=== PATIENT | male | born 1950 | race Caucasian/White ===

== ENCOUNTER 2017-05-15 16:48 | Emergency (ER) | payer OTHER ==
--- OUTSIDE RECORDS SUMMARY | 2017-05-15 17:00 | XMS REPORT ---
:1950 External Reference #:[id number] [facility] Address [address] [address] Phone [phone] Care Team Providers Name Role Phone Juanjose Bergeron MD Primary Care Physician Unavailable Payers Type Date Identification Numbers Payment Provider Subscriber Commercial Policy Number: [id number] [employer] Number: [id number] [id number] PayID: [id number] [place] [address] Problems Date Description Provider Status Onset: 11/06/2012 Coronary arteriosclerosis Bill Adams M.D.,FACP Onset: 01/16/2015 Ischemic dilated cardiomyopathy Juanjose Bergeron, Active due to coronary artery disease Zion,FACP Onset: 02/28/2007 Benign essential hypertension Bill Adams M.D.,FACP Onset: 02/28/2007 Hyperlipidemia Bill Adams M.D.,FACP Onset: 02/28/2007 Impaired fasting glycaemia Bill Adams M.D.,FACP Onset: 09/04/2009 Allergic rhinitis due to pollen Bill Adams M.D.,FACP Onset: 07/27/2011 Disorder of shoulder Bill Adams M.D.,FACP Onset: 07/27/2011 Gastroesophageal reflux disease Bill Adams M.D.,FACP Onset: 11/08/2012 Arthropathy of joint of hand Juanjose Bergeron, Active M.Karuna,FACP Onset: 01/16/2015 Cholelithiasis without Juanjose Bergeron, Active obstruction Zion,FACP Onset: 10/31/2012 Gallbladder calculus with acute Juanjose Bergeron, Inactive cholecystitis and obstruction Jasmin.Karuna,FACP Inactive: 01/16/2015 Onset: 07/19/2013 Chronic ischemic heart disease Matty Flores M.D., FACC, Inactive FSCAI Inactive: 01/16/2015 Family History Date Family Member(s) Problem(s) Comments General Heart Disease Father due to [place] () - sudden at 80 Father Hypertension Mother due to Motor () Vehicle Accident Siblings 3 : (age 64 First Brother due to [place] Years) Second Brother Heart Disease Paternal Uncles Cancer, Lung Social History Type Date Description Comments Marital Status Lives With Family 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 [employer] Note - [employer] Cigarette Use Quit 29 Years Ago ETOH Use 02/16/2016 Denies alcohol use Recreational Drug Use Denies Drug Use Smoking Patient is a former smoker 1ppd X 12 years Daily Caffeine Does Not Consume Caffeine Exercise Type/Frequency Does not exercise General Hx Text 2 children, one disabled Allergies, Adverse Reactions, Alerts Date Description Reaction Status Severity Comments 02/28/2007 Niacin active 11/08/2012 Sulfa Antibiotics active 12/20/2013 Codeine active Medications Medication Date Status Form Strength Qnty SIG Indications Ordering Provider Atorvastatin 02/17 Active Tablets 40mg 90tab 1 by Juanjose s mouth Karuna Bergeron, every M.D.,FACP evening Hydrochlorothiazid 01/22 Active Capsules 12.5mg 90cap take 1 I25.111 Juanjose s capsule Karuna Bergeron, by mouth M.D.,FACP every day Enalapril Maleate 01/16 Active Tablets 20mg 180ta take 1 bs tablet by Karuna Bergeron, mouth M.D.,FACP twice a day Cyclobenzaprine 09/06 Active Tablets 10mg 60tab take 1 Andry s tablet Pachikara twice a , M.D. day as needed Nitrostat 04/12 Active Tablets Sub 0.4mg 25tab one sl I25.111 s q5min up Karuna Bergeron, to 3 M.D.,FACP doses as needed Isosorbide 02/01 Active Tablets ER 30mg 90tab take 1 Juanjose Mononitrate 24HR s tablet Karuna Bergeron, daily M.D.,FACP Aspirin 12/[address] 81mg 50tab 1 po qd s Karuna Bergeron M.D.,FACP Multi-Vitamins/Iro 02/28 Active Tablets Juanjose Karuna Bergeron M.D.,FACP Vitamin C Active Capsules 500mg 1 po qd Unknown Tylenol Active Tablets 325mg 1 tablet Unknown bid prn Calcium/Vitamin D Active Tablet 1 tablet Unknown / daily Fiber Select Active Chewtabs 120un 2 Unknown Gummies its chewtabs by mouth every day Vitamin B12 Active Tablets 1 by Unknown / mouth every day Metoprolol Active Tablets 25mg 180ta take 1 Tartrate bs tablet by Karuna Bergeron, mouth M.D.,FACP twice a day Omeprazole Active Capsules DR 40mg 90cap take 1 s capsule Karuna Bergeron, daily M.D.,FACP Chlorpheniramine Active Tablets 4mg twice a Unknown Male day as needed Atorvastatin 02/15 Hx Tablets 80mg 90tab take 1 Juanjose s tablet by Karuna Bergeron, - mouth M.D.,FACP 02/17 every day Clopidogrel 02/07 Hx Tablets 75mg 90tab 1 PO qd Jasmeet Bisulf s Bessy, [employer] - 01/12 Hydrochlorothiazid 08/09 Hx Capsules 12.5mg 30cap 1 cap by 401.9 Clair e s mouth Gael, - every day N.P. 11/14 Atorvastatin 07/19 Hx Tablets 40mg 180ta 2 by Juanjose bs mouth Karuna Bergeron, - every day M.D.,FACP 02/15 Atorvastatin 04/12 Hx Tablets 40mg 90tab take 1 Juanjose Calcium s tablet by Karuna Bergeron, - mouth at M.D.,FACP 07/19 bedtime Atorvastatin 04/05 Hx Tablets 20mg 90tab take 1 Juanjose Calcium s tablet Karuna Bergeron, - daily M.D.,FACP 04/12 Atorvastatin 02/01 Hx Tablets 40mg 30tab take 1 Juanjose Calcium s tablet at Karuna Bergeron, - bedtime M.D.,FACP 04/05 Penicillin V 01/13 Hx Tablets 500mg 40tab qid for Juanjose Potassium s 10 days Karuna Bergeron, - M.D.,FACP 02/01 Tamiflu 01/11 Hx Capsules 75mg 10cap 1 cap po 487.8 Clair s bid x 5 Gael, - days N.P. 01/13 Voltaren 11/08 Hx Gel 1% 100g apply 1 716.84 gm to Karuna Bergeron, - affected M.D.,FACP 02/01 area bid prn Enalapril Maleate 11/07 Hx Tablets 10mg 60tab 1 tab by s mouth Stefek, - twice a M.D., 11/07 day [facility] Enalapril Maleate 11/07 Hx Tablets 10mg 60tab take 1 s tablet Karuna Bergeron, - twice a M.D.,FAC Vicodin 12/06 Hx Tablets 5-500mg 30tab 1-2 s tablets Suri, - bid as M.D. 11/08 pain Flexeril 11/29 Hx Tablets 10mg 60tab 1 po bid s prn Suri, - M.D. 09/06 Vicodin 11/08 Hx Tablets 5-500mg 14tab 1 tablets Earlene s bid as Nicolasa, - needed RPA 12/06 Naprosyn 11/08 Hx Tablets 500mg 60tab D/C'd s 01/09. Suri, - twice M.D. 02/27 daily with food prn Omeprazole 07/[address] 40mg 90cap Take 1 530.81 s Capsule Karuna Bergeron, - Daily M.D.,[facility] 04/08 Flexeril 12/08 Hx Tablets 10mg 60tab 1 po tid s prn Suri, - M.D. 07/26 Azithromycin 09/28 Hx Tablets 250mg 6tabs 2 tabs po 461.0 qd x1 Karuna Bergeron, - day, 1 M.D.,[facility] 07/26 tab po qd x 4 days Tessalon Perles 09/28 Hx Capsules 100mg 100mg 100 mg po 461.0 tid prn Karuna Bergeron, - M.D.,[facility] 07/26 Proair HFA 09/28 Hx Aerosol 108(90Bas 1inha 2 puffs 466.0 e) mcg/ac ler inhaled Karuna Bergeron, - q4-6h prn M.D.,[facility] 07/26 Naproxen 12/08 Hx Tabs 500mg 60tab take 1 726.19 s tablet Suri, - twice A M.D. 11/08 day needed Nasonex 09/04 Hx Suspension 50mcg/Act 1unit 1-2 477.0 s sprays Karuna Bergeron, - each M.D.,[facility] 07/26 nostril daily Karen 08/06 Hx Tablets 180mg 30tab 1 po qd 477.0 s c, - Radomir, 07/26 M.D. Atrovent 08/06 Hx Solution 0.03% 1unit 2 squirts 477.0 s each c, - nostril Radomir, 07/26 bid M.D. Protonix 08/[address] 40mg 30tab 1 tab po 477.0 s q hs c, - Radomir, 08/06 M.D. Omeprazole 08/[address] 40mg 30cap 1 po qd s c, - Radomir, 07/26 M.D. /2012 Avelox 04/01 Hx Tablets 400mg 10tab 1 qd x 10 466.0 s days Pascale Rowley M.D.,[facility] 07/03 Hycodan 04/01 Hx Syrup 5-1.5/5 200cc 5cc qid 466.0 prn cough Pascale Rowley M.D.,[facility] 07/03 Avelox 05/25 Hx Tablets 400mg 10tab 1 qd x 10 466.0 s days Pascale Rowley M.D.,[facility] 09/02 Hycodan 05/25 Hx Syrup 5-1.5/5 100cc 5cc qid prn cough Pascale Rowley M.D.,[facility] 09/02 Augmentin 05/10 Hx Tablets 875mg 20tab si 461.9 s bid x 10 Pascale Rowley M.D.,[facility] 09/02 0 05/10 Hx off work 466.0 05/10 and Karuna Bergeron - 05/11 Zion,[facility] 09/02 Aspir-[address] 02/[address] 81mg 30tab 1 PO qd Pascale Saleem M.D.,[facility] 12/08 Ibuprofen 02/28 Hx Tablets 200mg tid Pascale Rowley M.D.,[facility] 07/26 Enalapril 02/28 Hx Tablets 10-25mg 30tab 1 qam 401.1 Juanjose Maleate/Hydrochlor /2006 andrzej Bergeron othiazide Pascale Donovan,[facility] 10/01 Enalapril Maleate 02/28 Hx Tablets 10mg 90tab Take 1 s Tablet In Bassem Rowley,[facility] 11/07 Enalapril Maleate 02/15 Hx Tablets 10mg 60tab po bid Juanjose Pascale Saleem M.D.,[facility] 02/28 Vitamin B-12 00/00 Hx Tablets Sub 500mcg 50tab 1 po Unknown /0000 s daily - 01/19 Clortab Hx 4mg one pill Unknown /0000 2 times a - day 11/08 Zantac Hx Tablets 150mg 30tab 1 po bid Unknown /0000 s prn - 01/11 Gummi Fiber Hx Chewtabs 4mg 2 daily Unknown /0000 - 04/08 Atorvastatin Hx Tablets 20mg 30tab take 1 Unknown Calcium /0000 s tablet at - bedtime 02/01 Isosorbide Hx Tablets 30mg 30tab 1 po qd Unknown Mononitrate /0000 s - 02/01 Clopidogrel Hx Tablets 75mg 30tab 1 po qd Juanjose / s Pascale Rowley M.D.,[facility] 02/07 Vitamin C CR Hx Capsules ER 500mg 1 po qd Unknown /0000 - 01/11 Diclofenac Sodium Hx Tablets DR 75mg 60tab take 1 Unknown /0000 s tablet by - mouth 01/18 twice a day Medications Administered in Office Medication Date Status Form Strength Qnty SIG Indications Ordering Provider Celestone 3 mg Administered Injection Johnnie and 3mg 013 Zion Mccord Depomedrol Administered Injection Johnnie 80MG 011 Zion Mccord Depomedrol Administered Injection Johnnie 40MG 010 Zion Mccord Immunizations CPT Code Status Date Vaccine Lot # [id number] Given 02/17/2017 Pneumococcal Conjugate Vaccine 13 Valent For [id number] Intramuscular Use 55732 Given 02/02/2017 Influenza Virus Vaccine, Quadrivalent, Split, Preservative Free [id number] Given 01/23/2014 Flu Vaccine Split Virus Preservative Free For Indiv 3Yr Older 71394 Given 02/01/2013 Zoster (Zostavax) [id number] 02736 Given 02/01/2013 Pneumonia Vaccine [id number] 18312 Given 02/25/2011 Influenza Virus 3Yrs & Over 95899 Given 07/03/2008 Tdap - Tetanus/Diptheria/Acellular Pertussis [id number] 72185 Given 01/16/2008 Flu Vac (History By Patient> Vital Signs Date Vital Result Comment 05/04/2017 Weight 189.00 lb BP Systolic Sitting 132 mmHg BP Diastolic Sitting 82 mmHg Body Temperature 97.3 F 02/17/2017 Height 64 inches 5'4" Weight 188.00 lb Heart Rate 88 /min BP Systolic Sitting 124 mmHg BP Diastolic Sitting 82 mmHg Body Temperature 98.3 F O2 % BldC Oximetry 96 % BMI (Body Mass Index) 32.3 kg/m2 02/16/2016 Weight 192.00 lb Heart Rate 96 /min BP Systolic Sitting 130 mmHg BP Diastolic Sitting 82 mmHg Respiratory Rate 15 /min Body Temperature 97.8 F O2 % BldC Oximetry 98 % 02/15/2016 Height 64 inches 5'4" Weight 193.00 lb Heart Rate 88 /min 94 BP Systolic Sitting 126 mmHg left arm, reg cuff BP Diastolic Sitting 88 mmHg left arm, reg cuff BP Systolic Standing 112 mmHg left arm, reg cuff BP Diastolic Standing 86 mmHg left arm, reg cuff Respiratory Rate 12 /min BMI (Body Mass Index) 33.1 kg/m2 Ejection Fraction 50-55% 12/18/12 02/13/2015 Height 64 inches 5'4" Weight 192.50 lb Heart Rate 68 /min BP Systolic Sitting 109 mmHg BP Diastolic Sitting 74 mmHg Body Temperature 98.0 F O2 % BldC Oximetry 93 % BMI (Body Mass Index) 33.0 kg/m2 01/22/2015 Height 64 inches 5'4" Weight 199.00 lb Heart Rate 78 /min BP Systolic Sitting 172 mmHg BP Diastolic Sitting 104 mmHg Body Temperature 97.9 F O2 % BldC Oximetry 94 % BMI (Body Mass Index) 34.2 kg/m2 01/19/2015 Height 64 inches 5'4" Weight 193.00 lb Heart Rate 72 /min 76 BP Systolic Sitting 130 mmHg right arm, reg cuff BP Diastolic Sitting 87 mmHg right arm, reg cuff BP Systolic Standing 124 mmHg right arm, reg cuff BP Diastolic Standing 86 mmHg right arm, reg cuff Respiratory Rate 14 /min BMI (Body Mass Index) 33.1 kg/m2 Ejection Fraction 50-55% 12/18/12 02/07/2014 Height 64 inches 5'4" Weight 192.50 lb Heart Rate 71 /min BP Systolic Sitting 133 mmHg BP Diastolic Sitting 72 mmHg Body Temperature 98.5 F BMI (Body Mass Index) 33.0 kg/m2 12/20/2013 Height 65 inches 5'5" Weight 182.00 lb Heart Rate 62 /min BP Systolic 136 mmHg BP Diastolic 90 mmHg BMI (Body Mass Index) 30.3 kg/m2 11/14/2013 Weight 192.00 lb Heart Rate 80 /min BP Systolic Sitting 104 mmHg BP Diastolic Sitting 76 mmHg Body Temperature 97.0 F 08/09/2013 Height 64 inches 5'4" Weight 196.25 lb Heart Rate 88 /min BP Systolic Sitting 120 mmHg BP Diastolic Sitting 86 mmHg Body Temperature 98.3 F BMI (Body Mass Index) 33.7 kg/m2 07/19/2013 Height 63.5 inches 5'3.50" Weight 194.00 lb Heart Rate 70 /min 74 BP Systolic Sitting 134 mmHg left arm, reg cuff BP Diastolic Sitting 100 mmHg left arm, reg cuff BP Systolic Standing 130 mmHg left arm, reg cuff BP Diastolic Standing 100 mmHg left arm, reg cuff Respiratory Rate 16 /min BMI (Body Mass Index) 33.8 kg/m2 04/24/2013 Heart Rate 84 /min BP Systolic Sitting 130 mmHg BP Diastolic Sitting 88 mmHg 04/12/2013 Height 64.5 inches 5'4.50" Weight 189.75 lb Heart Rate 76 /min BP Systolic Sitting 118 mmHg BP Diastolic Sitting 76 mmHg BMI (Body Mass Index) 32.1 kg/m2 02/01/2013 Height 64 inches 5'4" Weight 190.50 lb Heart Rate 72 /min BP Systolic Sitting 132 mmHg BP Diastolic Sitting 94 mmHg BMI (Body Mass Index) 32.7 kg/m2 01/11/2013 Weight 190.25 lb Heart Rate 88 /min BP Systolic Sitting 136 mmHg BP Diastolic Sitting 72 mmHg Body Temperature 98.5 F O2 % BldC Oximetry 97 % 11/08/2012 Weight 189.25 lb Heart Rate 88 /min BP Systolic Sitting 160 mmHg BP Diastolic Sitting 82 mmHg 07/27/2011 Height 64 inches 5'4" Weight 190.00 lb Heart Rate 68 /min BP Systolic Sitting 122 mmHg BP Diastolic Sitting 80 mmHg Respiratory Rate 14 /min Body Temperature 97.9 F BMI (Body Mass Index) 32.6 kg/m2 09/28/2010 Height 64.25 inches 5'4.25" Weight 192.00 lb Heart Rate 70 /min BP Systolic Sitting 146 mmHg BP Diastolic Sitting 96 mmHg BMI (Body Mass Index) 32.7 kg/m2 12/08/2009 Weight 185.00 lb Heart Rate 70 /min BP Systolic Sitting 138 mmHg BP Diastolic Sitting 84 mmHg 09/04/2009 Weight 189.00 lb Heart Rate 84 /min BP Systolic Sitting 138 mmHg BP Diastolic Sitting 90 mmHg 08/06/2009 Weight 189.00 lb Heart Rate 78 /min BP Systolic Sitting 120 mmHg BP Diastolic Sitting 78 mmHg Body Temperature 97.5 F 07/03/2008 Height 64.5 inches 5'4.50" Weight 177.00 lb Heart Rate 72 /min BP Systolic Sitting 118 mmHg BP Diastolic Sitting 70 mmHg BMI (Body Mass Index) 29.9 kg/m2 04/01/2008 Height 64.5 inches 5'4.50" Weight 183.00 lb Heart Rate 72 /min BP Systolic Sitting 126 mmHg BP Diastolic Sitting 80 mmHg Body Temperature 97.9 F BMI (Body Mass Index) 30.9 kg/m2 03/05/2008 Height 64.5 inches 5'4.50" Weight 183.00 lb Heart Rate 64 /min BP Systolic Sitting 116 mmHg BP Diastolic Sitting 62 mmHg BMI (Body Mass Index) 30.9 kg/m2 09/03/2007 Height 64.5 inches 5'4.50" Weight 185.00 lb Heart Rate 64 /min BP Systolic Sitting 130 mmHg BP Diastolic Sitting 88 mmHg BMI (Body Mass Index) 31.3 kg/m2 05/25/2007 Height 64.5 inches 5'4.50" Weight 181.00 lb Heart Rate 76 /min BP Systolic Sitting 126 mmHg BP Diastolic Sitting 78 mmHg BMI (Body Mass Index) 30.6 kg/m2 05/10/2007 Height 64.5 inches 5'4.50" Weight 179.00 lb Heart Rate 80 /min BP Systolic Sitting 134 mmHg BP Diastolic Sitting 90 mmHg Respiratory Rate 20 /min Body Temperature 98.8 F BMI (Body Mass Index) 30.2 kg/m2 02/28/2007 Height 64.5 inches 5'4.50" Weight 181.00 lb Heart Rate 88 /min BP Systolic Sitting 160 mmHg BP Diastolic Sitting 94 mmHg BMI (Body Mass Index) 30.6 kg/m2 Results Test Date Test Result H/L Range Note Laboratory test 05/04/2017 Culture Throat <pending> finding Laboratory test 05/04/2017 Rapid Group A neg finding Strep Basic Metabolic Panel 01/31/2017 Sodium 139 mmol/L 133-145 Potassium 4.1 mmol/L 3.5-5.0 Chloride 104 mmol/L 101-111 Co2 Carbon Dioxide 30 mmol/L 22-32 Anion Gap 5 mmol/L 2-11 Glucose 114 mg/dL High 70-100 Blood Urea Nitrogen 21 mg/dL 6-24 Creatinine 1.29 mg/dL High 0.67-1.17 BUN/Creatinine Ratio 16.3 8-20 Calcium 9.2 mg/dL 8.6-10.3 Egfr Non- 55.9 >60 Egfr 71.9 >60 1 Lipid Profile (Trig/Chol/HDL) 01/31/2017 Triglycerides 169 mg/dL 2 Cholesterol 108 mg/dL 3 HDL Cholesterol 28.3 mg/dL 4 LDL Cholesterol 46 mg/dL 5 Laboratory test finding 08/29/2016 Creatine Kinase(CK) 68 U/L 10-223 6 Liver Function Panel 08/29/2016 Total Protein 6.7 g/dL 6.4-8.9 Albumin 3.9 g/dL 3.2-5.2 Globulin 2.8 g/dL 2-4 Albumin/Globulin Ratio 1.4 1-3 Total Bilirubin 0.60 mg/dL 0.2-1.0 Direct Bilirubin 0.10 mg/dL 0.03-0.18 Indirect Bilirubin 0.5 mg/dL 0.3-1.0 Alkaline Phosphatase 66 U/L 34-104 Alt 29 U/L 7-52 Ast 18 U/L 13-39 Lipid Profile (Trig/Chol/HDL) 08/29/2016 Triglycerides 141 mg/dL 7 Cholesterol 158 mg/dL 8 HDL Cholesterol 38.0 mg/dL 9 LDL Cholesterol 92 mg/dL 10 Lipid Profile (Trig/Chol/HDL) 02/05/2016 Triglycerides 149 mg/dL 11 Cholesterol 111 mg/dL 12 HDL Cholesterol 26.9 mg/dL 13 LDL Cholesterol 54 mg/dL 14 Laboratory test finding 02/05/2016 Glucose 117 mg/dL High 70-100 Comp Metabolic Panel 02/05/2016 Sodium 140 mmol/L 133-145 Potassium 4.0 mmol/L 3.5-5.0 Chloride 104 mmol/L 101-111 Co2 Carbon Dioxide 29 mmol/L 22-32 Anion Gap 7 mmol/L 2-11 Blood Urea Nitrogen 21 mg/dL 6-24 Creatinine 1.44 mg/dL High 0.67-1.17 BUN/Creatinine Ratio 14.6 8-20 Calcium 9.3 mg/dL 8.6-10.3 Total Protein 6.6 g/dL 6.4-8.9 Albumin 4.1 g/dL 3.2-5.2 Globulin 2.5 g/dL 2-4 Albumin/Globulin Ratio 1.6 1-3 Total Bilirubin 0.60 mg/dL 0.2-1.0 Alkaline Phosphatase 85 U/L 34-104 Alt 33 U/L 7-52 Ast 21 U/L 13-39 Egfr Non- 49.4 >60 Egfr 63.5 >60 15 Basic Metabolic Panel 02/06/2015 Sodium 138 mmol/L 133-145 Potassium 4.0 mmol/L 3.5-5.0 Chloride 100 mmol/L Low 101-111 Co2 Carbon Dioxide 31 mmol/L 22-32 Anion Gap 7 mmol/L 2-11 Glucose 121 mg/dL High 70-100 Blood Urea Nitrogen 17 mg/dL 6-24 Creatinine 1.33 mg/dL High 0.67-1.17 BUN/Creatinine Ratio 12.8 8-20 Calcium 9.3 mg/dL 8.6-10.3 Egfr Non- 54.3 >60 Egfr 69.8 >60 16 Laboratory test finding 01/15/2015 Lactic Acid 0.8 mmol/L 0.5-2.2 Troponin-I (TnI) 0.00 ng/mL <0.03 17 Comp Metabolic Panel 01/15/2015 Sodium 137 mmol/L 133-145 Potassium 3.9 mmol/L 3.5-5.0 Chloride 103 mmol/L 101-111 Co2 Carbon Dioxide 28 mmol/L 22-32 Anion Gap 6 mmol/L 2-11 Glucose 106 mg/dL High 70-100 Blood Urea Nitrogen 19 mg/dL 6-24 Creatinine 1.31 mg/dL High 0.67-1.17 BUN/Creatinine Ratio 14.5 8-20 Calcium 9.4 mg/dL 8.6-10.3 Total Protein 6.8 g/dL 6.4-8.9 Albumin 4.3 g/dL 3.2-5.2 Globulin 2.5 g/dL 2-4 Albumin/Globulin Ratio 1.7 1-3 Total Bilirubin 0.60 mg/dL 0.2-1.0 Alkaline Phosphatase 81 U/L 34-104 Alt 31 U/L 7-52 Ast 20 U/L 13-39 Egfr Non- 55.3 >60 Egfr 71.1 >60 18 CBC Auto Diff 01/15/2015 White Blood Count 7.5 10^3/uL 4.8-10.8 Red Blood Count 5.57 10^6/uL High 4.0-5.4 Hemoglobin 15.8 g/dL 14.0-18.0 Hematocrit 48 % 42-52 Mean Corpuscular Volume 86 fL 80-94 Mean Corpuscular Hemoglobin 28 pg 27-31 Mean Corpuscular HGB Conc 33 g/dL 31-36 Red Cell Distribution Width 15 % 10.5-15 Platelet Count 208 10^3/uL 150-450 Mean Platelet Volume 9 um3 7.4-10.4 Abs Neutrophils 5.0 10^3/uL 1.5-7.7 Abs Lymphocytes 1.1 10^3/uL 1.0-4.8 Abs Monocytes 0.8 10^3/uL 0-0.8 Abs Eosinophils 0.6 10^3/uL 0-0.6 Abs Basophils 0 10^3/uL 0-0.2 Abs Nucleated RBC 0 10^3/uL Granulocyte % 66.7 % 38-83 Lymphocyte % 14.7 % Low 25-47 Monocyte % 10.5 % High 1-9 Eosinophil % 7.6 % High 0-6 Basophil % 0.5 % 0-2 Nucleated Red Blood Cells % 0.1 Lipid Profile (Trig/Chol/HDL) 09/13/2013 Triglycerides 187 mg/dL 19, 20 Cholesterol 124 mg/dL 19, 21 HDL Cholesterol 29.4 mg/dL 19, 22 LDL Cholesterol 57 mg/dL 19, 23 Laboratory test finding 09/13/2013 Alt 38 U/L 7-52 19, 24 Ast 24 U/L 13-39 19, 25 Laboratory test finding 04/02/2013 Inr 0.91 0.85-1.06 26 Comp Metabolic Panel 04/02/2013 Sodium 134 mmol/L 133-145 Potassium 4.2 mmol/L 3.5-5.0 Chloride 102 mmol/L 101-111 Co2 Carbon Dioxide 27.0 mmol/L 22-32 Anion Gap 5.0 mmol/L 2-11 Glucose 117 mg/dL High 70-100 Blood Urea Nitrogen 15 mg/dL 6-24 Creatinine 1.10 mg/dL 0.50-1.40 BUN/Creatinine Ratio 13.6 8-20 Calcium 9.2 mg/dL 8.1-9.9 Total Protein 7.0 g/dL 6.2-8.1 Albumin 4.1 g/dL 3.2-5.2 Globulin 2.9 g/dL 2-4 Albumin/Globulin Ratio 1.4 1-3 Total Bilirubin 0.8 mg/dL 0.4-1.5 Alkaline Phosphatase 64 U/L 30-110 Alt 29 U/L 14-54 Ast 26 U/L 12-42 Egfr Non- 68.1 >60 Egfr 87.5 >60 27 Laboratory test finding 04/02/2013 Creatine Kinase 187 U/L 0-200 CKMB 04/02/2013 CKMB ng/mL 3.6 ng/mL 0.3-4.0 28 Laboratory test finding 04/02/2013 Troponin I 0.04 ng/mL 0-0.06 29 CBC Auto Diff 04/02/2013 White Blood Count 8.5 10^3/uL 4.8-10.8 Red Blood Count 5.39 10^6/uL 4.0-5.4 Hemoglobin 15.4 g/dL 14.0-18.0 Hematocrit 46 % 42-52 Mean Corpuscular Volume 84 fL 80-94 Mean Corpuscular Hemoglobin 29 pg 27-31 Mean Corpuscular HGB Conc 34 g/dL 31-36 Red Cell Distribution Width 18 % High 10.5-15 Platelet Count 256 10^3/uL 150-450 Mean Platelet Volume 9 um3 7.4-10.4 Abs Neutrophils 6.5 10^3/uL 1.5-7.7 Abs Lymphocytes 0.9 10^3/uL Low 1.0-4.8 Abs Monocytes 0.8 10^3/uL 0-0.8 Abs Eosinophils 0.1 10^3/uL 0-0.6 Abs Basophils 0 10^3/uL 0-0.2 Abs Nucleated RBC 0.01 10^3/uL Granulocyte % 77.1 % 38-83 Lymphocyte % 11.1 % Low 25-47 Monocyte % 9.7 % High 1-9 Eosinophil % 1.7 % 0-6 Basophil % 0.4 % 0-2 Nucleated Red Blood Cells % 0.1 Cell Morphology 04/02/2013 RBC Morphology Normal Normal Lipid Profile (Trig/Chol/HDL) 01/28/2013 Triglycerides 93 mg/dL 40-200 Cholesterol 144 mg/dL Less than 200 HDL Cholesterol 30 mg/dL Low 40-60 30 Cholesterol/HDL Ratio 4.8 Average High 1-4.44 LDL Cholesterol 95.4 Less Than 100 31 Laboratory test finding 01/28/2013 Alt 43 U/L 14-54 Ast 36 U/L 12-42 Laboratory test finding 01/11/2013 Throat Beta Strep (SEE NOTE) 32 Culture Laboratory test finding 01/11/2013 Rapid Strep A Negative Laboratory test finding 10/31/2012 Troponin I 0.09 ng/mL High 0-0.06 33 CBC Auto Diff 10/31/2012 White Blood Count 8.5 10^3/uL 4.8-10.8 Red Blood Count 5.23 10^6/uL 4.0-5.4 Hemoglobin 14.5 g/dL 14.0-18.0 Hematocrit 43 % 42-52 Mean Corpuscular Volume 83 fL 80-94 Mean Corpuscular Hemoglobin 28 pg 27-31 Mean Corpuscular HGB Conc 34 g/dL 31-36 Red Cell Distribution Width 14 % 10.5-15 Platelet Count 191 10^3/uL 150-450 Mean Platelet Volume 10 um3 7.4-10.4 Abs Neutrophils 6.8 10^3/uL 1.5-7.7 Abs Lymphocytes 0.7 10^3/uL Low 1.0-4.8 Abs Monocytes 0.7 10^3/uL 0-0.8 Abs Eosinophils 0.3 10^3/uL 0-0.6 Abs Basophils 0 10^3/uL 0-0.2 Abs Nucleated RBC 0 10^3/uL Granulocyte % 80.4 % 38-83 Lymphocyte % 8.4 % Low 25-47 Monocyte % 7.8 % 1-9 Eosinophil % 3.0 % 0-6 Basophil % 0.4 % 0-2 Nucleated Red Blood Cells % 0 Inr/Protime 10/31/2012 Inr 0.82 Low 0.87-0.97 Laboratory test 10/31/2012 Activated Partial 32.0 seconds 22.18-37.18 34 finding Thrombo Time B Type Natriuretic Peptide 16.0 pg/mL 0-100 Comp Metabolic Panel 10/31/2012 Sodium 138 mmol/L 133-145 Potassium 3.8 mmol/L 3.5-5.0 Chloride 108 mmol/L 101-111 Co2 Carbon Dioxide 28.0 mmol/L 22-32 Anion Gap 2.0 mmol/L 2-11 Glucose 160 mg/dL High 70-100 Blood Urea Nitrogen 17 mg/dL 6-24 Creatinine 1.10 mg/dL 0.50-1.40 BUN/Creatinine Ratio 15.5 8-20 Calcium 8.7 mg/dL 8.1-9.9 Total Protein 6.3 g/dL 6.2-8.1 Albumin 3.6 g/dL 3.2-5.2 Globulin 2.7 g/dL 2-4 Albumin/Globulin Ratio 1.3 1-3 Total Bilirubin 0.6 mg/dL 0.4-1.5 Alkaline Phosphatase 93 U/L 30-110 Alt 33 U/L 14-54 Ast 29 U/L 12-42 Egfr Non- 68.3 >60 Egfr 87.8 >60 35 Laboratory test finding 10/31/2012 Lipase 26 U/L 22-51 36 Creatine Kinase 126 U/L 0-200 37 Laboratory test finding 10/31/2012 Troponin I 0.07 ng/mL High 0-0.06 38 CKMB 10/31/2012 CKMB ng/mL 3.6 ng/mL 0.3-4.0 39 Lipid Profile (Trig/Chol/HDL) 08/24/2011 Triglyceride 129 mg/dL 40-200 Cholesterol 181 mg/dL Less Than 200 40 High Density Lipoprotein 27 mg/dL Low 40-60 41 Cholesterol/HDL Ratio 6.70 AVERAGE High 1-4.97 Low Density Lipoprotein 128 mg/dL High Less Than 100 42 Basic Metabolic Panel 08/24/2011 Sodium 138 mmol/L 135-145 Potassium 4.4 mmol/L 3.5-5.0 Chloride 107 mmol/L 101-111 Co2 (Carbon Dioxide) 27.0 mmol/L 22-32 Anion Gap 4.0 mmol/L 2-11 43 Glucose 111 mg/dL High 70-100 BUN 16 mg/dL 6-24 Creatinine 1.2 mg/dL 0.50-1.40 One Over Creatinine 0.83 BUN/Creatinine Ratio 13.3 8-20 Calcium 9.6 mg/dL 8.1-9.9 eGFR Non- 62.0 > 60 eGFR 79.7 > 60 44 Lipid Profile (Trig/Chol/HDL) 12/08/2009 Triglyceride 178 mg/dL 40-200 Cholesterol 201 mg/dL High Less Than 200 45 High Density Lipoprotein 28 mg/dL Low 40-60 46 Cholesterol/HDL Ratio 7.18 AVERAGE High 1-4.97 Low Density Lipoprotein 137 mg/dL High Less Than 100 47 Basic Metabolic Panel 12/08/2009 Sodium 140 mmol/L 135-145 Potassium 4.3 mmol/L 3.5-5.0 Chloride 103 mmol/L 101-111 Co2 (Carbon Dioxide) 30.0 mmol/L 22-32 Anion Gap 7.0 mmol/L 2-11 48 Glucose 86 mg/dL 70-100 49 BUN 18 mg/dL 6-24 Creatinine 1.20 mg/dL 0.50-1.40 One Over Creatinine 0.80 BUN/Creatinine Ratio 15.0 8-20 Calcium 9.6 mg/dL 8.1-9.9 50 eGFR Non- 66.3 > 60 eGFR 80.3 > 60 51 Lipid Profile (Trig/Chol/HDL) 07/04/2008 Triglyceride 122 mg/dL 40-200 Cholesterol 211 mg/dL High Less Than 200 52 High Density Lipoprotein 30 mg/dL Low 40-60 53 Cholesterol/HDL Ratio 7.03 AVERAGE High 1-4.97 Low Density Lipoprotein 157 mg/dL High Less Than 100 54 Laboratory test finding 07/04/2008 PSA Screening 2.13 NG/ML 0-4 55 C Reactive Protein High Sensit 0.6 mg/L < 7.48 56 Basic Metabolic Panel 07/04/2008 Sodium 139 mmol/L 135-145 Potassium 4.1 mmol/L 3.5-5.0 Chloride 100 mmol/L Low 101-111 Co2 (Carbon Dioxide) 29.0 mmol/L 22-32 Anion Gap 10.0 mmol/L 2-11 57 Glucose 109 mg/dL High 70-100 58 BUN 18 mg/dL 6-24 Creatinine 1.20 mg/dL 0.50-1.40 One Over Creatinine 0.80 BUN/Creatinine Ratio 15.0 8-20 Calcium 9.5 mg/dL 8.1-9.9 59 Throat-Beta Strept 07/07/2007 Throat-Beta Strep Culture NGNBS 60 1 Because ethnic data is not always readily available, this report includes an eGFR for both -Americans and non- Americans. The National Kidney Disease Education Program (NKDEP) does not endorse the use of the MDRD equation for patients that are not between the ages of 18 and 70, are , have extremes of body size, muscle mass, or nutritional status, or are non- or non-. According to the National Kidney Foundation, irrespective of diagnosis, the stage of the disease is based on the level of kidney function: Stage Description GFR(mL/min/1.73 m(2)) 1 Kidney damage with normal or decreased GFR 90 2 Kidney damage with mild decrease in GFR 60-89 3 Moderate decrease in GFR 30-59 4 Severe decrease in GFR 15-29 5 Kidney failure <15 (or dialysis) 2 Desirable: <150 Borderline High: 150-199 High: 200-499 Very High: >500 3 Desirable: <200 Borderline High: 200-239 High: >239 4 Low: <40 Desirable: 40-60 High: >60 5 Desirable: <100 Near Optimal: 100-129 Borderline High: 130-159 High: 160-189 Very High: >189 6 FASTING 12 HOUR 7 Desirable <150 Borderline high 150-199 High 200-499 Very High >500 8 Desirable <200 Borderline high 200-239 High >239 9 Low <40 Desirable: 40-60 High: >60 10 Desirable: <100 mg/dL Near Optimal: 100-129 mg/dL Borderline High: 130-159 mg/dL High: 160-189 mg/dL Very High: >189 mg/dL 11 Desirable <150 Borderline high 150-199 High 200-499 Very High >500 12 Desirable <200 Borderline high 200-239 High >239 13 Low <40 Desirable: 40-60 High: >60 14 Desirable: <100 mg/dL Near Optimal: 100-129 mg/dL Borderline High: 130-159 mg/dL High: 160-189 mg/dL Very High: >189 mg/dL 15 Because ethnic data is not always readily available, this report includes an eGFR for both -Americans and non- Americans. The National Kidney Disease Education Program (NKDEP) does not endorse the use of the MDRD equation for patients that are not between the ages of 18 and 70, are , have extremes of body size, muscle mass, or nutritional status, or are non- or non-. According to the National Kidney Foundation, irrespective of diagnosis, the stage of the disease is based on the level of kidney function: Stage Description GFR(mL/min/1.73 m(2)) 1 Kidney damage with normal or decreased GFR 90 2 Kidney damage with mild decrease in GFR 60-89 3 Moderate decrease in GFR 30-59 4 Severe decrease in GFR 15-29 5 Kidney failure <15 (or dialysis) 16 Because ethnic data is not always readily available, this report includes an eGFR for both -Americans and non- Americans. The National Kidney Disease Education Program (NKDEP) does not endorse the use of the MDRD equation for patients that are not between the ages of 18 and 70, are , have extremes of body size, muscle mass, or nutritional status, or are non- or non-. According to the National Kidney Foundation, irrespective of diagnosis, the stage of the disease is based on the level of kidney function: Stage Description GFR(mL/min/1.73 m(2)) 1 Kidney damage with normal or decreased GFR 90 2 Kidney damage with mild decrease in GFR 60-89 3 Moderate decrease in GFR 30-59 4 Severe decrease in GFR 15-29 5 Kidney failure <15 (or dialysis) 17 Reference Range and Interpretation: TnI (ng/mL) Interpretation Less Than 0.03 ng/mL Not supportive of diagnosis of RI 0.03 - 0.50 ng/mL Indeterminate: suggest serial studies if clinically indicated. Greater than 0.5 ng/mL Consistent with diagnosis of RI 18 Because ethnic data is not always readily available, this report includes an eGFR for both -Americans and non- Americans. The National Kidney Disease Education Program (NKDEP) does not endorse the use of the MDRD equation for patients that are not between the ages of 18 and 70, are , have extremes of body size, muscle mass, or nutritional status, or are non- or non-. According to the National Kidney Foundation, irrespective of diagnosis, the stage of the disease is based on the level of kidney function: Stage Description GFR(mL/min/1.73 m(2)) 1 Kidney damage with normal or decreased GFR 90 2 Kidney damage with mild decrease in GFR 60-89 3 Moderate decrease in GFR 30-59 4 Severe decrease in GFR 15-29 5 Kidney failure <15 (or dialysis) 19 PT IS FASTING 20 Desirable <150 Borderline high 150-199 High 200-499 Very High >500 21 Desirable <200 Borderline high 200-239 High >239 22 Low <40 Desirable: 40-60 High: >60 23 Desirable <100 Near Optimal 100-129 Borderline high 130-159 High 160-189 Very High >189 24 PT IS FASTING 25 PT IS FASTING 26 Please note the change in the INR reference range effective 13. 27 Because ethnic data is not always readily available, this report includes an eGFR for both -Americans and non- Americans. The National Kidney Disease Education Program (NKDEP) does not endorse the use of the MDRD equation for patients that are not between the ages of 18 and 70, are , have extremes of body size, muscle mass, or nutritional status, or are non- or non-. According to the National Kidney Foundation, irrespective of diagnosis, the stage of the disease is based on the level of kidney function: Stage Description GFR(mL/min/1.73 m(2)) 1 Kidney damage with normal or decreased GFR 90 2 Kidney damage with mild decrease in GFR 60-89 3 Moderate decrease in GFR 30-59 4 Severe decrease in GFR 15-29 5 Kidney failure <15 (or dialysis) 28 CKMB interpretation should be made in conjunction with clinical symptoms, patient history and EKG changes. 29 Reference Range and Interpretation: TnI (ng/mL) Interpretation Less Than 0.06 ng/mL Not supportive of diagnosis of RI 0.06 - 0.50 ng/mL Indeterminate: suggest serial studies if clinically indicated. Greater than 0.5 ng/mL Consistent with diagnosis of RI 30 HDL Interpretation: Undesirable: High Risk: Less than 40 mg/dL Desirable: Low Risk: Greater than 60 mg/dL 31 LDL Interpretation: Low Risk Optimal Level: LDL Less than 100 mg/dL Near or Above Optimal: LDL 100-129 mg/dL Borderline High Risk: LDL 130-159 mg/dL High Risk: LDL 160-189 mg/dL Very High Risk: LDL Greater than 189 mg/dL 32 RUN DATE: 01/13/13 [facility] LAB LIVE PAGE 1 RUN TIME: [address] [place] [id number] Specimen Inquiry Name: BERENICE BENAVIDES : [address]: Clair Mayo NP Acct: [id number] Unit: [id number] AGE: 63 Location: [facility] Re01/11/13 SEX: M Status: REG REF SPEC: [id number] [place]: 01/11/13-163 [facility] [address]: Clair Mayo NP REQ: [id number] RECD: 01/11/13 STATUS: COMP _ SOURCE: THROAT SPDESC: ORDERED: Throat Beta Str QUERIES: Medent Number [id number] Procedure Result Verified Site Throat Beta Strep Culture Final 01/13/13- 36 ML Organism 1 STREP GRP A BY BACITRACIN DISC END OF REPORT * ML=Testing performed at Main Lab DEPARTMENT OF PATHOLOGY, [address] [place] [address] Jhony Manrique M.D. Director [facility] Permit #[id number] 33 Reference Range and Interpretation: TnI (ng/mL) Interpretation Less Than 0.06 ng/mL Not supportive of diagnosis of RI 0.06 - 0.50 ng/mL Indeterminate: suggest serial studies if clinically indicated. Greater than 0.5 ng/mL Consistent with diagnosis of RI 34 Comment: n Comment: d 35 Because ethnic data is not always readily available, this report includes an eGFR for both -Americans and non- Americans. The National Kidney Disease Education Program (NKDEP) does not endorse the use of the MDRD equation for patients that are not between the ages of 18 and 70, are , have extremes of body size, muscle mass, or nutritional status, or are non- or non-. According to the National Kidney Foundation, irrespective of diagnosis, the stage of the disease is based on the level of kidney function: Stage Description GFR(mL/min/1.73 m(2)) 1 Kidney damage with normal or decreased GFR 90 2 Kidney damage with mild decrease in GFR 60-89 3 Moderate decrease in GFR 30-59 4 Severe decrease in GFR 15-29 5 Kidney failure <15 (or dialysis) 36 Comment: b Comment: d Comment: c Comment: s 37 Comment: b Comment: d Comment: c Comment: s 38 Reference Range and Interpretation: TnI (ng/mL) Interpretation Less Than 0.06 ng/mL Not supportive of diagnosis of RI 0.06 - 0.50 ng/mL Indeterminate: suggest serial studies if clinically indicated. Greater than 0.5 ng/mL Consistent with diagnosis of RI 39 CKMB interpretation should be made in conjunction with clinical symptoms, patient history and EKG changes. 40 CHOLESTEROL INTERPRETATION: Desirable: Less than 200 MG/DL Borderline-High Risk: 200-239 MG/DL High-Risk: 240 MG/DL and over 41 HDL INTERPRETATION: Undesirable: High Risk: Less than 40 MG/DL Desirable: Low Risk: Greater than 60 MG/DL 42 LDL INTERPRETATION: Low Risk Optimal Level: LDL Less than 100 MG/DL Near or Above Optimal: LDL 100-129 MG/DL Borderline High Risk: LDL 130-159 MG/DL High Risk: LDL 160-189 MG/DL Very High Risk: LDL Greater than 189 MG/DL 43 Anion gap measurement may be of limited value in the presence of any alkalosis, especially in a combined acid base disorder. . 44 Because ethnic data is not always readily available, this report includes an eGFR for both -Americans and non- Americans. The National Kidney Disease Education Program (NKDEP) does not endorse the use of the MDRD equation for patients that are not between the ages of 18 and 70, are , have extremes of body size, muscle mass, or nutritional status, or are non- or non-. According to the National Kidney Foundation, irrespective of diagnosis, the stage of the disease is based on the level of kidney function: Stage Description GFR(mL/min/1.73 m(2)) 1 Kidney damage with normal or decreased GFR 90 2 Kidney damage with mild decrease in GFR 60-89 3 Moderate decrease in GFR 30-59 4 Severe decrease in GFR 15-29 5 Kidney failure <15 (or dialysis) 45 CHOLESTEROL INTERPRETATION: Desirable: Less than 200 MG/DL Borderline-High Risk: 200-239 MG/DL High-Risk: 240 MG/DL and over 46 HDL INTERPRETATION: Undesirable: High Risk: Less than 40 MG/DL Desirable: Low Risk: Greater than 60 MG/DL 47 LDL INTERPRETATION: Low Risk Optimal Level: LDL Less than 100 MG/DL Near or Above Optimal: LDL 100-129 MG/DL Borderline High Risk: LDL 130-159 MG/DL High Risk: LDL 160-189 MG/DL Very High Risk: LDL Greater than 189 MG/DL 48 Anion gap measurement may be of limited value in the presence of any alkalosis, especially in a combined acid base disorder. . 49 Note change in reference range as of 12/06/07. The change was based on recommendations from the [place] [employer]. 50 Please note change in reference range effective 07 . 51 Because ethnic data is not always readily available, this report includes an eGFR for both -Americans and non- Americans. The National Kidney Disease Education Program (NKDEP) does not endorse the use of the MDRD equation for patients that are not between the ages of 18 and 70, are , have extremes of body size, muscle mass, or nutritional status, or are non- or non-. According to the National Kidney Foundation, irrespective of diagnosis, the stage of the disease is based on the level of kidney function: Stage Description GFR(mL/min/1.73 m(2)) 1 Kidney damage with normal or decreased GFR 90 2 Kidney damage with mild decrease in GFR 60-89 3 Moderate decrease in GFR 30-59 4 Severe decrease in GFR 15-29 5 Kidney failure <15 (or dialysis) 52 CHOLESTEROL INTERPRETATION: Desirable: Less than 200 MG/DL Borderline-High Risk: 200-239 MG/DL High-Risk: 240 MG/DL and over 53 HDL INTERPRETATION: Undesirable: High Risk: Less than 40 MG/DL Desirable: Low Risk: Greater than 60 MG/DL 54 LDL INTERPRETATION: Low Risk Optimal Level: LDL Less than 100 MG/DL Near or Above Optimal: LDL 100-129 MG/DL Borderline High Risk: LDL 130-159 MG/DL High Risk: LDL 160-189 MG/DL Very High Risk: LDL Greater than 189 MG/DL 55 * SERUM LEVELS OF PSA MEASURED USING THE [employer] ACCESS HYBRITECH IMMUNOASSAY SHOULD NOT BE INTERPRETED ABSOLUTE EVIDENCE OF THE PRESENCE OR ABSENCE OF DISEASE. THE PSA VALUE SHOULD BE USED IN CONJUNCTION WITH OTHER PERTINENT CLINICAL DIAGNOSTIC PROCEDURES. 56 Less Than 1.0......Low Risk of Cardiovascular Disease 1.0-3.0............Medium Risk (<2 Fold Increase) Greater Than 3.0...High Risk (Approximately 2-Fold Increase) The above guidelines are referenced in "Markers of Inflammation and Cardiovascular Disease: Application to Clinical and Public Health Practice." A Statement for Health Professionals from the Centers for Disease Control and Prevention and the [place] [employer]. (Reference: Circulation 2003 107:499-511) SERUM LEVELS OF HIGH SENSITIVITY C-REACTIVE PROTEIN MEASURED BY THE [employer] LXi 725 SYSTEM SHOULD NOT BE INTERPRETTED ABSOLUTE EVIDENCE OF THE PRESENCE OR ABSENCE OF DISEASE. A HIGH SENSITIVITY CRP VALUE SHOULD BE USED IN CONJUNCTION WITH OTHER PERTINENT CLINICAL AND DIAGNOSTIC INFORMATION. 57 Anion gap measurement may be of limited value in the presence of any alkalosis, especially in a combined acid base disorder. . 58 Note change in reference range as of 12/06/07. The change was based on recommendations from the [place] Diabetes [employer]. 59 Please note change in reference range effective 07 . 60 NEGATIVE FOR GROUP A STREP Procedures Date CPT Code Description Status 02/17/2017 34151 Admin & Interp Of Health Risk Assessment w/ Patient Completed 02/15/2016 39047 EKG Tracing & Interpretation Completed 01/19/2015 23746 EKG Tracing & Interpretation Completed 01/16/2015 09658 Treadmill Interp/Report Only Completed 01/16/2015 44394 Stress Test Supervsn W/Out I/R Completed 01/16/2015 47587 EKG, Interpretation Only Completed 07/19/2013 99161 EKG Tracing & Interpretation Completed 05/16/2013 Colonoscopy Completed 04/03/2013 75329 Left Heart Cath. Incl S/I Coronaries, Angio S/I V Gram Completed If Done 04/03/2013 18489 EKG, Interpretation Only Completed 02/27/2013 83393 Rad Exam; Hand Comp Completed 02/27/2013 67367 Rad Exam; Hand Comp Completed 02/27/201375762 Inject Tendon Sheath Or Ligament Aponeurosis Eg Plantar Completed Fascia 12/18/2012 17613 ECHO Transthoracic, Real-Time 2D With Doppler And Color Completed Flow 11/02/2012 22945 EKG, Interpretation Only Completed 11/01/2012 13640 EKG, Interpretation Only Completed 10/31/2012 28199 Cath PLMT&NJX L Ventriculog Img S&I Completed 10/31/2012 90454 ECHO Transthorasic Realtime 2D W Doppler & Color Completed Flow Hosp 10/31/2012 11584 ECHO Transthorasic Realtime 2D W Doppler & Color Completed Flow Hosp 10/31/2012 97241 EKG, Interpretation Only Completed 10/31/2012 90731 Revascularization Chronic Total Occlusion Coronary Completed Artery 10/17/2011 18128 Arthroscopy Shoulder,W/Rotator Cuff Repair Completed 10/17/2011 71767 Arthroscopy Shoulder,W/Rotator Cuff Repair Completed 10/17/2011 62051 Arthroscopy,Shoulder Decompression Of Subacromial Space Completed W/Acromio 10/17/2011 70930 Arthroscopy,Shoulder Decompression Of Subacromial Space Completed W/Acromio 12/21/2010 13395 Inject/Drain Joint/Bursa Major Completed 01/22/201056695 Inject/Drain Joint/Bursa Major Completed 10/04/2002 Colonoscopy Completed Encounters Type Date Location Provider CPT E/M Dx Office Visit 02/17/2017 3:00p [facility] Internal Juanjose Bergeron, 39715 Z00.01 [place] - Michelle Trujillo M.D.,FACP I25.10 R73.01 I10 Z13.6 Z23 Office Visit 02/16/2016 3:00p [facility] Internal Medicine Juanjose Bergeron, 92960 Z00.00 - Curtis Donovan,FACP I25.111 I10 R73.01 N18.1 Office Visit 02/15/2016 8:40a [facility] Yanira Flores M.D., 06464 I25.10 [facility] I10 E78.5 Office Visit 02/13/2015 3:00p [facility] Internal Juanjose Bergeron, 15895 Z00.00 [place] - Michelle Trujillo M.D.,FACP I25.118 I10 R73.01 Office Visit 01/22/2015 11:10a [facility] Internal Medicine Juanjose Bergeron, 74421 I25.111 - Tbwilfredo Trujillo M.D.,FACP Office Visit 01/19/2015 1:40p [facility] Linda RodriguezD., 15529 I10 [facility] At [facility], FSCAI E78.5 I25.9 Office Visit 01/16/2015 11:10a [facility] Oliver Telles, 28152 R07.2 [facility] [place] I25.111 I10 K21.9 Office Visit 01/15/2015 11:07a [facility] Malcolm Gilbert M.D. 21197 R07.2 Hospitalists I25.111 I10 K21.9 Office Visit 02/07/2014 3:00p [facility] Internal Medicine Juanjose Bergeron, 45700 V70.0 - Curtis Donovan,FACP 414.01 401.1 Office Visit 12/20/2013 11:00a [facility] M.D. 00711 836.0 C.M.A. Office Visit 11/14/2013 4:00p [facility] Internal Medicine Juanjose Bergeron, 28809 959.7 - Curtis Donovan,FACP 414.01 V73.99 Office Visit 08/09/2013 4:00p [facility] Internal Medicine Clair Mayo, N.PMicky 62864 414.9 - [place] 401.9 Office Visit 07/19/2013 3:30p [facility] Of Matty Flores M.D., 63508 414.9 [facility] At [facility], FSCAI 401.9 272.4 Office Visit 04/24/2013 4:00p [facility] Mccord M.D. 51995 727.03 Of C.M.A. Office Visit 04/24/2013 2:20p [facility] Bessie Sena, 18279 414.01 [facility] D.O. 401.9 272.4 Office Visit 04/12/2013 10:40a [facility] Internal Medicine Juanjose Bergeron, 72134 414.01 - Curtis Donovan,FACP V76.51 Office Visit 04/03/2013 9:11a [facility] Of Mani Daly, 99763 411.1 [facility] [place], [facility], FASCT 786.50 Office Visit 04/03/2013 11:13a [facility] Pavel Curiel, 42709 786.51 Assoc[facility] [place] 414.01 530.81 401.9 Office Visit 04/02/2013 11:13a [facility] Delmis Harman, 01509 786.51 [facility]oc[facility] [place] 414.01 530.81 401.9 Office Visit 02/27/2013 11:00a [facility], 24082 727.03 C.Steffi Donovan 716.94 Office Visit 02/01/2013 3:00p [facility] Internal Medicine Juanjose Bergeron, 40557 V70.0 - Curtis Donovan,[facility] 414.01 V03.82 V04.89 Office Visit 01/11/2013 4:00p [facility] Internal Medicine Clair Mayo, N.P. 49309 487.8 - Curtis 784.1 Office Visit 01/08/2013 3:45p [facility] Of Matty Flores M.D., 48395 414.9 [facility], FSCAI 401.9 272.4 Office Visit 11/08/2012 3:40p [facility] Internal Medicine Juanjose Bergeron, 43331 414.01 - Curtis Donovan,FACP 716.84 Office Visit 11/07/2012 2:45p [facility] Of Matty Flores M.D., 44851 414.9 [facility], FSCAI 401.9 272.4 Office Visit 11/02/2012 2:47p [facility] Of Geena Peralta M.D. 96244 414.01 [facility] Office Visit 11/02/2012 7:21p [facility] Oliver Telles, 23927 411.1 [facility] [place] 401.9 410.71 Office Visit 11/01/2012 7:20p [facility] Oliver Telles 64403 411.1 [facility] [place] 401.9 410.71 Office Visit 11/01/2012 11:42a [facility] Of Rai Salguero, 99366 411.1 Emilee Donovan Office Visit 10/31/2012 2:30p [facility] Of Matty Flores M.D., 45912 786.50 Protective [employer] Issuer [facility], [facility] 410.70 414.9 Office Visit 10/31/2012 7:19p [facility] Delmis Harman, 83282 411.1 [facility] Office Visit 06/27/2012 4:15p [facility], 07279 840.4 C.M.A. M.D. Office Visit 03/29/2012 10:15a [facility] Nicolasa Henao [facility] 20164 840.4 C.M.A. Office Visit 02/29/2012 11:45a [facility], 45837 840.4 C.M.A. M.D. Office Visit 02/08/2012 9:15a [facility], 01787 840.4 C.M.A. M.D. Office Visit 08/24/2011 8:00a [facility], 74196 726.10 C.M.A. M.DMicky Office Visit 07/27/2011 2:20p [employer] Internal Medicine Juanjose Bergeron, 71087 V70.0 - Curtis Donovan,[facility] 401.1 790.21 726.19 530.81 Office Visit 02/15/2011 3:45p [facility], 33181 726.10 C.M.A. M.DMicky Office Visit 12/21/2010 4:00p [facility], 49424 726.19 C.M.A. MDipti Office Visit 12/08/2010 10:30a [facility], 19275 840.4 C.M.A. M.D. Office Visit 09/28/2010 3:00p DO Not Use Protective [employer]othing Issuer At Clair Mayo, 31233 461.0 Alissa N.P. 382.9 466.0 Office Visit 01/22/2010 1:00p [facility] M.D. 16358 726.2 C.M.A. Office Visit 12/08/2009 10:00a DO Not Use [employer]ctive [employer] Issuer At Juanjose Bergeron, 88641 V70.0 [place] M.D.,FACP 790.21 726.19 401.1 Office Visit 09/04/2009 11:20a DO Not Use Protective [employer] Issuer At [facility], 29342 401.1 [facility] M.D.,FACP 790.21 477.0 272.0 Office Visit 08/06/2009 9:00a DO Not Use [facility] 13405 477.0 [facility] M.D. 530.81 Office Visit 07/03/2008 9:20a DO Not Use Protective [employer]othing Issuer At [facility], 70308 V70.0 [facility] M.D.,FACP 401.1 V06.1 Office Visit 04/01/2008 8:30a DO Not Use [place] [place] [address] 466.0 [place] 401.1 Office Visit 03/05/2008 10:00a DO Not Use Protective [employer]othing Issuer At [facility], 66784 401.1 [facility] M.D.,FACP 719.47 V76.51 Office Visit 09/03/2007 9:40a DO Not Use Protective [employer]othing Issuer At [facility], 53379 401.1 [facility] M.D.,FACP 477.0 Office Visit 05/25/2007 9:30a DO Not Use [place] [place] [address] 466.0 [facility] Office Visit 05/10/2007 9:00a DO Not Use [place]ctive [place] [address] 461.9 [facility] 466.0 Office Visit 02/28/2007 11:20a DO Not Use Protective Clothing Issuer At [facility], 78567 V70.0 [facility] M.D.,FACP v70.0 401.1 272.4 790.21 Plan of Care 05/04/2017 - Jennifer Wayne M.D.J02.9 Acute pharyngitis, unspecifiedComments: likey a viral infection which runs its course for 7-10 days, you should encourage fluids , tylenol for pain and fever
[2017-05-15 17:42] VITALS: BP 188/107
[2017-05-15] MEDS ORDERED: NS 0.9% 100 ML* 1,000 ML IV ONE (18:10)
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
== END 2017-05-15 18:34 | disposition short-term general hospital (02) ==
LOC: UCEAST 16:48
DX: R10.9 Unspecified abdominal pain (principal); R14.0 Abdominal distension (gaseous); R33.9 Retention of urine, unspecified
CPT/HCPCS: 99213; G0463

== ENCOUNTER 2017-05-15 18:49 | Emergency (ER) | payer OTHER ==
[2017-05-15 20:09] LABS: ABS Basophils 0 10^3/ul (0-0.2); ABS Eosinophils 0 10^3/ul (0-0.6); ABS Lymphocytes 0.4 10^3/ul (1.0-4.8); ABS Monocytes 0.6 10^3/ul (0-0.8); ABS Neutrophils 12.9 10^3/ul (1.5-7.7); ABS Nucleated RBC 0 10^3/ul; Eosinophil % 0.1 % (0-6); Hematocrit 46 % (42-52); Hemoglobin 15.2 g/dl (14.0-18.0); Lymphocyte % 2.5 % (25-47); Mean Corpuscular HGB Conc 33 g/dl (31-36); Mean Corpuscular Hemoglobin 28 pg (27-31); Mean Corpuscular Volume 84 fL (80-94); Mean Platelet Volume 10 um3 (7.4-10.4); Nucleated Red Blood Cells % 0; Platelet Count 201 10^3/ul (150-450); Red Blood Count 5.42 10^6/ul (4.0-5.4); Red Cell Distribution Width 15 % (10.5-15); White Blood Count 13.9 10^3/ul (3.5-10.8)
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
--- NOTE | 2017-05-15 20:21 | RAD ---
INDICATION: Right flank pain with dysuria. COMPARISON: There are no prior studies available for comparison. TECHNIQUE: A CT scan of the abdomen and pelvis was performed without intravenous or oral contrast. Contiguous axial sections were obtained from the lung bases through the symphysis pubis. Images were reconstructed in the coronal and sagittal planes. FINDINGS: The lung bases are clear. No pleural effusion is present. The liver and spleen are normal in size. There is calcification along the lateral aspect of the right hepatic lobe. No other focal hepatic abnormalities are seen. The liver is decreased in attenuation consistent with fatty infiltration. There are gallstones present. The pancreas appears to be within normal limits. The adrenal glands appear to be within normal limits. There is mild enlargement of the right kidney. There is fluid tracking around the right kidney and stranding in the perinephric fat. No renal calculi are seen. There is mild dilatation of the right renal pelvis and proximal ureter. No ureteral calculus is seen. No bladder calculi are noted. The prostate gland appears enlarged measuring 4.9 cm in transverse dimension. The aorta is normal in caliber with mild calcific plaque present. No significant enlarged retroperitoneal lymph nodes are seen. There is a small hiatal hernia. The stomach, small and large bowel appear nondistended. The appendix is within normal limits. There are a few scattered diverticuli. There is no evidence for diverticulitis or colitis. There is a moderate amount of retained stool. No free intraperitoneal air or fluid is seen. No significant focal osseous abnormality is seen. Multiple surgical sutures are noted in the intra-abdominal wall in the midline. IMPRESSION: 1. NONSPECIFIC STRANDING AND FLUID TRACKING AROUND THE RIGHT KIDNEY. THERE IS MILD DILATATION OF THE PROXIMAL RIGHT URETER. NO RENAL OR URETERAL CALCULI ARE SEEN. CONSIDER RECENT PASSAGE OF A CALCULUS OR PYELONEPHRITIS. 2. CHOLELITHIASIS. 3. HEPATIC STEATOSIS.
[2017-05-15 20:24] LABS: INR 0.88 (0.77-1.02)
[2017-05-15 20:25] LABS: EGFR Non-African American 50.9 (>60)
[2017-05-15] MEDS ORDERED: cefTRIAXone(*) 1 GM in NS 0.9% 50 ML* 50 ML IVPB ONE (20:27)
[2017-05-15] MEDS ORDERED: Ketorolac INJ* 30 MG/ML 1 ML VIAL IV PUSH ONE (20:46)
[2017-05-15 21:11] LABS: Urine Appearance Clear; Urine Blood 1+ (Negative); Urine Color Yellow; Urine Ketones Negative (Negative); Urine Protein Negative (Negative); Urine Specific Gravity 1.014 (1.010-1.030); Urine Urobilinogen Negative (Negative)
[2017-05-15 21:58] VITALS: BP 143/67
== END 2017-05-15 21:57 | disposition home or self-care (01) ==
LOC: ED 18:49
DX: N20.9 Urinary calculus, unspecified (principal); N12 Tubulo-interstitial nephritis, not specified as acute or chronic; K80.20 Calculus of gallbladder without cholecystitis without obstruction; K76.0 Fatty (change of) liver, not elsewhere classified; Z87.891 Personal history of nicotine dependence; Z88.5 Allergy status to narcotic agent; Z88.2 Allergy status to sulfonamides
CPT/HCPCS: 36415; 74176; 80053; 81003; 81015; 83605; 83690; 83735; 85025; 85610; 85730; 86140; 96365; 96375; 99283; J0696

== ENCOUNTER 2018-04-22 14:31 | Emergency (ER) | payer OTHER ==
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
[2018-04-22] MEDS ORDERED: Aspirin 81 mg CHEW TAB* 81 MG TAB.CHEW PO ONE (15:19)
[2018-04-22 15:41] LABS: ABS Basophils 0 10^3/ul (0-0.2); ABS Eosinophils 0.2 10^3/ul (0-0.6); ABS Monocytes 0.9 10^3/ul (0-0.8); ABS Neutrophils 6.3 10^3/ul (1.5-7.7); ABS Nucleated RBC 0.1 10^3/ul; Eosinophil % 2.8 %; Hematocrit 47 % (42-52); Hemoglobin 15.7 g/dl (14.0-18.0); Lymphocyte % 11.8 %; Mean Corpuscular HGB Conc 34 g/dl (31-36); Mean Corpuscular Hemoglobin 30 pg (27-31); Mean Corpuscular Volume 88 fL (80-94); Mean Platelet Volume 9.4 fL (7.4-10.4); Nucleated Red Blood Cells % 0.5; Platelet Count 223 10^3/ul (150-450); Red Blood Count 5.34 10^6/ul (4.00-5.40); Red Cell Distribution Width 14 % (10.5-15); White Blood Count 8.4 10^3/ul (3.5-10.8)
[2018-04-22 15:42] LABS: Urine Appearance Clear; Urine Bilirubin Negative (Negative); Urine Blood Negative (Negative); Urine Color Yellow; Urine Glucose Negative (Negative); Urine Ketones Negative (Negative); Urine Nitrite Negative (Negative); Urine Protein Negative (Negative); Urine Specific Gravity 1.018 (1.010-1.030); Urine Urobilinogen Negative (Negative)
[2018-04-22 15:49] LABS: Activated Partial Thrombo Time 32.9 seconds (26.0-36.3); INR 0.89 (0.77-1.02)
[2018-04-22 15:55] LABS: Albumin 4.6 g/dL (3.2-5.2); Albumin/Globulin Ratio 1.8 (1-3); BUN/Creatinine Ratio 15.4 (8-20); Calcium 9.6 mg/dL (8.6-10.3); EGFR Non-African American 58.9 (>60); Globulin 2.5 g/dL (2-4); Potassium 4.2 mmol/L (3.5-5.0); Total Bilirubin 0.6 mg/dL (0.2-1.0); Total Protein 7.1 g/dL (6.4-8.9)
[2018-04-22 16:25] LABS: TSH (Thyroid Stimulating Horm) 0.98 mcIU/mL (0.34-5.60)
[2018-04-22 19:52] VITALS: BP 144/92
== END 2018-04-22 19:56 | disposition home or self-care (01) ==
LOC: ED 14:31
DX: R07.9 Chest pain, unspecified (principal); R00.2 Palpitations; Z87.891 Personal history of nicotine dependence; Z88.2 Allergy status to sulfonamides; Z88.5 Allergy status to narcotic agent
CPT/HCPCS: 36415; 71046; 80053; 81003; 82550; 82553; 83605; 83735; 83880; 84436; 84443; 84484; 85025; 85379; 85610; 85730; 93005; 99283; A9270-GY